=== PATIENT | male | born 1965 | race Caucasian/White ===

== ENCOUNTER → 2016-07-23 | Outpatient (CLI) | payer OTHER ==
[2016-07-23 10:32] LABS: BASOPHILS % (AUTO) 0 % (0-2); EOSINOPHILS # (AUTO) 0.2 10^3uL; EOSINOPHILS % (AUTO) 4 % (0-4); LYMPHOCYTES # (AUTO) 1.3 X10^3; MEAN CORPUSCULAR HGB CONC 33.4 g/dL (31.0-37.0); MEAN PLATELET VOLUME 10.1 FL (6.0-9.5); MONOCYTES # (AUTO) 0.7 X10^3; MONOCYTES % (AUTO) 15 % (3-11); NEUTROPHILS # (AUTO) 2.5 X10^3; NEUTROPHILS % (AUTO) 53 % (51-67); PLATELET COUNT 174 10^3uL (150-450); WHITE BLOOD COUNT 4.67 10^3uL (4.0-11.0)
[2016-07-23 10:33] LABS: MEAN CORPUSCULAR HEMOGLOBIN 26.4 PG (26.0-34.0); MEAN CORPUSCULAR VOLUME 79 FL (80-100)
[2016-07-23 10:46] LABS: ALBUMIN 4.4 g/dL (3.4-5.0); ANION GAP 16.4 MEQ/L (3-15); TOTAL PROTEIN 7.4 g/dL (6.4-8.5)
== END ==
LOC: LAB 10:13
PROVIDERS: ATTEND Family Medicine
DX: Z00.00 Encounter for general adult medical examination without abnormal findings (principal)
CPT/HCPCS: 36415; 80053; 85025; 93005

== ENCOUNTER → 2016-08-15 | Outpatient (CLI) | payer OTHER ==
--- NOTE | 2016-08-15 13:53 | Diagnostic Imaging Report ---
INDICATION: Sarcoid. PA and lateral views of chest are obtained. Comparison is made to study of 10/11/2014. FINDINGS: Heart size and pulmonary vascularity remain within normal limits. There is no pneumothorax or consolidation. Overall, there has been no adverse change. IMPRESSION: No acute abnormality or adverse change is detected. Dictated by: Dictated on workstation # [id number]
== END ==
LOC: RAD 13:19
PROVIDERS: ATTEND Internal Medicine Sleep Medicine
DX: D86.9 Sarcoidosis, unspecified (principal)
CPT/HCPCS: 71020